=== PATIENT | female | born 1990 | race Caucasian/White ===

== ENCOUNTER 2021-06-15 15:21 | Emergency (ER) | payer OTHER ==
[~2021-06-15] VITALS: Ht 152 cm; Wt 55.0 kg
[2021-06-15 17:21] LABS: BACTERIA,URINE MODERATE /HPF; BILIRUBIN,URINE NEGATIVE (NEGATIVE); CLARITY,URINE CLEAR; COLOR,URINE YELLOW; GLUCOSE, URINE (UA) NEGATIVE (NEGATIVE); KETONES,URINE 1+ (NEGATIVE); LEUKOCYTE ESTERASE ,URINE NEGATIVE (NEGATIVE); NITRITE,URINE NEGATIVE (NEGATIVE); PROTEIN,URINE NEGATIVE (NEGATIVE); RBC,URINE 0-2 /HPF; SQUAMOUS EPITHELIAL CELL,UR 25-50 /HPF
--- NOTE | 2021-06-15 17:28 | ED Back Pain ---
General Chief Complaint: Back Problems Stated Complaint: ABD/BACK PAIN VOMITING Nursing Triage Note: PT REPORTS LOWER BACK PAIN THAT RADIATES INTO HER RIBS BILATERALLY. PT REPORTS SEVERAL MONTHS AGO HER KIDNEY FUNCTION WAS NOT GOOD IT SHOULD BE AND SHE HAS A FOLLOW UP IN JUNE. History of Present Illness Date Seen by Provider: Jun 15, 2021 Time Seen by Provider: 16:50 Initial Comments 30-year-old female with PMH of PTSD/possible arthritis undergoing work-up, is here with complaints of mid back pain which is radiating towards her flanks which began today. Patient states the pain was equal to labor pain. In the ER her pain has resolved completely and she just feels nauseous. Patient denies dysuria, fever, chills, abdominal pain, chest pain, shortness of breath, cough. Patient has a 20 pound baby which she carries a lot which may have been a trigger for the pain, however patient has not been drinking much water lately as she should. Allergies and Home Medications Allergies Coded Allergies: No Known Drug Allergies (Unverified , 06/15/21) Patient Home Medication List Home Medication List Reviewed: Yes Review of Systems Constitutional: no symptoms reported EENTM: no symptoms reported Respiratory: no symptoms reported Cardiovascular: no symptoms reported Gastrointestinal: nausea, vomiting, other (mid back pain resolved. No muscle spasm) Skin: no symptoms reported Psychiatric/Neurological: No Symptoms Reported Past Xjumwai-Dvpmlh-Uzzmtl Hx Patient Social History Tobacco Use?: No Use of E-Cig and/or Vaping dev: No Substance use?: No Alcohol Use?: No Pt feels they are or have been: No Immunizations Up To Date First/Initial COVID19 Vaccinat: 2020 Second COVID19 Vaccination Fernando: 2020 COVID19 Vaccine Cut Out Worker: JOSIAS Physical Exam Vital Signs Vital Signs - First Documented 06/15/21 15:34 Temp 36.5 Pulse 71 Resp 18 B/P (MAP) 122/71 (88) Pulse Ox 99 O2 Delivery Room Air Capillary Refill : Less Than 3 Seconds Height, Weight, BMI Height: '" Weight: lbs. oz. kg; 23.00 BMI Method: General Appearance: No Apparent Distress HEENT: PERRL/EOMI Neck: Full Range of Motion Cardiovascular: Regular Rate, Rhythm Respiratory: Chest Non Tender, Lungs Clear, Normal Breath Sounds Gastrointestinal: Normal Bowel Sounds, No Organomegaly, No Pulsatile Mass, Non Tender, Soft Back: Normal Inspection, No CVA Tenderness, No Vertebral Tenderness Neurologic/Psychiatric: Alert, Oriented x3, No Motor/Sensory Deficits Progress/Results/Core Measures Results/Orders Lab Results Laboratory Tests Test 06/15/21 15:34 06/15/21 17:24 Range/Units Urine Color YELLOW Urine Clarity CLEAR Urine pH 6.0 5-9 Urine Specific [place] >=1.030 1.016-1.022 Urine Protein NEGATIVE NEGATIVE Urine Glucose (UA) NEGATIVE NEGATIVE Urine Ketones 1+ H NEGATIVE Urine Nitrite NEGATIVE NEGATIVE Urine Bilirubin NEGATIVE NEGATIVE Urine Urobilinogen 0.2 < = 1.0 MG/DL Urine Leukocyte Esterase NEGATIVE NEGATIVE Urine RBC (Auto) TRACE-I H NEGATIVE Urine RBC 0-2 /HPF Urine WBC 2-5 /HPF Urine Squamous Epithelial Cells 25-50 H /HPF Urine Crystals NONE /LPF Urine Bacteria MODERATE H /HPF Urine Casts NONE /LPF Urine Mucus SMALL H /LPF Urine Culture Indicated NO Urine Test NEGATIVE NEGATIVE White Blood Count 9.9 4.3-11.0 10^3/uL Red Blood Count 4.41 3.80-5.11 10^6/uL Hemoglobin 12.9 11.5-16.0 g/dL Hematocrit 38 35-52 % Mean Corpuscular Volume 86 80-99 fL Mean Corpuscular Hemoglobin 29 25-34 pg Mean Corpuscular Hemoglobin Concent 34 32-36 g/dL Red Cell Distribution Width 12.8 10.0-14.5 % Platelet Count 204 130-400 10^3/uL Mean Platelet Volume 9.7 9.0-12.2 fL Immature Granulocyte % (Auto) 0 % Neutrophils (%) (Auto) 84 H 42-75 % Lymphocytes (%) (Auto) 7 L 12-44 % Monocytes (%) (Auto) 9 0-12 % Eosinophils (%) (Auto) 0 0-10 % Basophils (%) (Auto) 0 0-10 % Neutrophils # (Auto) 8.2 H 1.8-7.8 10^3/uL Lymphocytes # (Auto) 0.7 L 1.0-4.0 10^3/uL Monocytes # (Auto) 0.9 0.0-1.0 10^3/uL Eosinophils # (Auto) 0.0 0.0-0.3 10^3/uL Basophils # (Auto) 0.0 0.0-0.1 10^3/uL Immature Granulocyte # (Auto) 0.0 0.0-0.1 10^3/uL Neutrophils % (Manual) 89 % Lymphocytes % (Manual) 5 % Monocytes % (Manual) 5 % Band Neutrophils 1 % Sodium Level 141 135-145 MMOL/L Potassium Level 3.9 3.6-5.0 MMOL/L Chloride Level 104 98-107 MMOL/L Carbon Dioxide Level 25 21-32 MMOL/L Anion Gap 12 5-14 MMOL/L Blood Urea Nitrogen 15 7-18 MG/DL Creatinine 0.73 0.60-1.30 MG/DL Estimat Glomerular Filtration Rate 115 BUN/Creatinine Ratio 21 Glucose Level 94 70-105 MG/DL Calcium Level 9.8 8.5-10.1 MG/DL Corrected Calcium 8.5-10.1 MG/DL Total Bilirubin 0.5 0.1-1.0 MG/DL Aspartate Amino Transf (AST/SGOT) 287 H 5-34 U/L Alanine Aminotransferase (ALT/SGPT) 139 H 0-55 U/L Alkaline Phosphatase 99 40-136 U/L Total Protein 7.9 6.4-8.2 GM/DL Albumin 4.9 H 3.2-4.5 GM/DL Lipase 31 8-78 U/L My Orders Orders - ABRAN MERRILL MD Ct Abdomen/Pelvis Wo (06/15/21 17:17) Ed Iv/Invasive Line Start (06/15/21 17:17) Cbc With Automated Diff (06/15/21 17:17) Comprehensive Metabolic Panel (06/15/21 17:17) Hcg,Qualitative Urine (06/15/21 17:17) Lipase (06/15/21 17:17) Ua Culture If Indicated (06/15/21 17:17) Ondansetron Injection (Zofran Injectio (06/15/21 17:30) Ed Iv/Invasive Line Start (06/15/21 17:18) Ns Iv 1000 Ml (Sodium Chloride 0.9%) (06/15/21 17:30) Manual Differential (06/15/21 17:24) Medications Given in ED Current Medications Medications Dose Ordered Sig/Sandie Route Start Time Stop Time Status Last Admin Dose Admin Ondansetron HCl 4 mg ONCE ONCE IVP 06/15/21 17:30 06/15/21 17:31 DC 06/15/21 17:27 4 MG Vital Signs/I&O 06/15/21 15:34 Temp 36.5 Pulse 71 Resp 18 B/P (MAP) 122/71 (88) Pulse Ox 99 O2 Delivery Room Air Blood Pressure Mean: 88 Progress Progress Note : Progress Note 1. BACK/ FLANK PAIN: - CT ABD: unremarkable except for a 3.3 cm ovarian cyst - Labs unremarkable except that AST is 287 and ALT is 139. Both are elevated but pt denies alcogol intake for long time. She is being worked up for rheumatoid arthritis and autoimmune disorder due to an elevated CRP, in [place] where she is from. - UA unremarkable - NS IVF bolus and Zofran 4mg iv STAT. Pt feels better after this - Advised to f/u with her PCP in [place] . Pt agreed to plan. - There may also be a possibility she may have have had a kidney stone, and once she passed the stone, the pain resolved. Diagnostic Imaging Diagonstic Imaging: CT Plain Films/CT/US/NM/MRI: abdomen Comments [facility] [place], [place] NAME: IGNACIA FRANK [facility] REC#: [id number] PT STATUS: REG ER : 1990 PHYSICIAN: ABRAN MERRILL MD ADMIT DATE: 06/15/21/ER FS Signed Date of Exam:06/15/21 CT ABDOMEN/PELVIS WO PROCEDURE: CT abdomen and pelvis without contrast. TECHNIQUE: Multiple contiguous axial images were obtained through the abdomen and pelvis without the use of intravenous contrast. Auto Exposure Controls were utilized during the CT exam to meet ALARA standards for radiation dose reduction. DATE: June 15, 2021. COMPARISON: None. INDICATION: 30-year-old female, nausea and vomiting. Bilateral flank pain. FINDINGS: There are limitations for evaluation of the abdominal organs, neoplastic processes, abscess, and limited evaluation of the vasculature relating to the lack of intravenous contrast. The visualized portions of the lung bases are clear. The heart is not enlarged. There is no identified pericardial effusion. The liver is unremarkable in size and contour. The gallbladder is unremarkable. There is no identified intrahepatic or extrahepatic bile duct dilation. The main pancreatic duct is not abnormally dilated. Limited noncontrast evaluation of the pancreatic parenchyma is unremarkable. The spleen is not enlarged. The adrenal glands are unremarkable. Unremarkable appearance of the renal parenchyma. The urinary collecting systems are not distended. There is no identified renal or ureteral stone. The urinary bladder is unremarkable. There is a cystic lesion in the left adnexa on axial image 165 measuring up to 3.3 cm in size which may reflect an ovarian cyst although it is not well characterized on CT. There is a very small amount of free pelvic fluid which may be physiologic. The intestinal tract is not distended. There is no evidence of acute appendicitis. There is a very small fat-containing paraumbilical hernia. There is no free intraperitoneal air. There is no identified drainable fluid collection. There appears to be a circumaortic left renal vein. There is no identified abnormally enlarged lymph node in the abdomen or pelvis which specifically meets CT size criteria for adenopathy. There is transitional lumbosacral anatomy. L5 is labeled as having an enlarged right lateral mass with pseudoarticulation with S1. If spinal intervention is to be performed in the future, recommend careful correlation with levels. There is no identified acute bony abnormality. IMPRESSION: CT abdomen and pelvis: 1. Cystic left adnexal lesion measuring 3.3 cm in size which may reflect an ovarian cyst although is not well characterized on CT. 2. Very small amount of free pelvic fluid which is most likely physiologic. 3. No identified acute abnormality in the abdomen or pelvis. Dictated by: Dictated on workstation # [id number] Dict: 06/15/211736 Trans: 06/15/211745 [id number] Interpreted by: EMELINA BERNAL MD Electronically signed by: EMELINA BERNAL MD 06/15/211745 Departure Impression Primary Impression: Flank pain Additional Impression: Mid back pain Disposition: 01 HOME, SELF-CARE Condition: Improved Departure-Patient Inst. Referrals: NO,LOCAL PHYSICIAN (PCP/Family) Primary Care Physician Patient Instructions: Flank Pain ED Add. Discharge Instructions: 1. BACK/ FLANK PAIN: - CT ABD: unremarkable except for a 3.3 cm ovarian cyst - Labs unremarkable except that AST is 287 and ALT is 139. Both are elevated but pt denies alcogol intake for long time. She is being worked up for rheumatoid arthritis and autoimmune disorder due to an elevated CRP, in [place] where she is from. - UA unremarkable - NS IVF bolus and Zofran 4mg iv STAT. Pt feels better after this - Advised to f/u with her PCP in [place] . Pt agreed to plan. - There may also be a possibility she may have have had a kidney stone, and once she passed the stone, the pain resolved. - If pain worsens return to closest ER All discharge instructions reviewed with patient and/or family. Voiced understanding. ABRAN MERRILL MD Jun 15, 2021 17:28
[2021-06-15] MEDS ORDERED: NS IV 1000 ML 1,000 ML IV SCH (17:30)
[2021-06-15] MEDS ORDERED: ONDANSETRON 4 MG/2 ML (SDV) Z0FRAN IVP ONE (17:30)
[2021-06-15 17:31] LABS: BASOPHILS % (AUTO) 0 % (0-10); EOSINOPHILS % (AUTO) 0 % (0-10); HEMATOCRIT 38 % (35-52); HEMOGLOBIN 12.9 g/dL (11.5-16.0); LYMPHOCYTES # (AUTO) 0.7 10^3/uL (1.0-4.0); LYMPHOCYTES % (AUTO) 7 % (12-44); MEAN CORPUSCULAR HEMOGLOBIN 29 pg (25-34); MEAN CORPUSCULAR HGB CONC 34 g/dL (32-36); MEAN CORPUSCULAR VOLUME 86 fL (80-99); MEAN PLATELET VOLUME 9.7 fL (9.0-12.2); MONOCYTES # (AUTO) 0.9 10^3/uL (0.0-1.0); MONOCYTES % (AUTO) 9 % (0-12); NEUTROPHILS # (AUTO) 8.2 10^3/uL (1.8-7.8); NEUTROPHILS % (AUTO) 84 % (42-75); PLATELET COUNT 204 10^3/uL (130-400); WHITE BLOOD COUNT 9.9 10^3/uL (4.3-11.0)
--- NOTE | 2021-06-15 17:44 | Diagnostic Imaging Report ---
PROCEDURE: CT abdomen and pelvis without contrast. TECHNIQUE: Multiple contiguous axial images were obtained through the abdomen and pelvis without the use of intravenous contrast. Auto Exposure Controls were utilized during the CT exam to meet ALARA standards for radiation dose reduction. DATE: June 15, 2021. COMPARISON: None. INDICATION: 30-year-old female, nausea and vomiting. Bilateral flank pain. FINDINGS: There are limitations for evaluation of the abdominal organs, neoplastic processes, abscess, and limited evaluation of the vasculature relating to the lack of intravenous contrast. The visualized portions of the lung bases are clear. The heart is not enlarged. There is no identified pericardial effusion. The liver is unremarkable in size and contour. The gallbladder is unremarkable. There is no identified intrahepatic or extrahepatic bile duct dilation. The main pancreatic duct is not abnormally dilated. Limited noncontrast evaluation of the pancreatic parenchyma is unremarkable. The spleen is not enlarged. The adrenal glands are unremarkable. Unremarkable appearance of the renal parenchyma. The urinary collecting systems are not distended. There is no identified renal or ureteral stone. The urinary bladder is unremarkable. There is a cystic lesion in the left adnexa on axial image 165 measuring up to 3.3 cm in size which may reflect an ovarian cyst although it is not well characterized on CT. There is a very small amount of free pelvic fluid which may be physiologic. The intestinal tract is not distended. There is no evidence of acute appendicitis. There is a very small fat-containing paraumbilical hernia. There is no free intraperitoneal air. There is no identified drainable fluid collection. There appears to be a circumaortic left renal vein. There is no identified abnormally enlarged lymph node in the abdomen or pelvis which specifically meets CT size criteria for adenopathy. There is transitional lumbosacral anatomy. L5 is labeled as having an enlarged right lateral mass with pseudoarticulation with S1. If spinal intervention is to be performed in the future, recommend careful correlation with levels. There is no identified acute bony abnormality. IMPRESSION: CT abdomen and pelvis: 1. Cystic left adnexal lesion measuring 3.3 cm in size which may reflect an ovarian cyst although is not well characterized on CT. 2. Very small amount of free pelvic fluid which is most likely physiologic. 3. No identified acute abnormality in the abdomen or pelvis. Dictated by: Dictated on workstation # [id number]
[2021-06-15 17:50] LABS: ALANINE AMINOTRANSFERASE 139 U/L (0-55); ALKALINE PHOSPHATASE 99 U/L (40-136); BILIRUBIN,TOTAL 0.5 MG/DL (0.1-1.0); BUN/CREATININE RATIO 21; CALCIUM 9.8 MG/DL (8.5-10.1); CARBON DIOXIDE 25 MMOL/L (21-32); CHLORIDE 104 MMOL/L (98-107); CREATININE SERUM 0.73 MG/DL (0.60-1.30); GFR ESTIMATED 115; GLUCOSE 94 MG/DL (70-105); POTASSIUM 3.9 MMOL/L (3.6-5.0); SODIUM 141 MMOL/L (135-145); TOTAL PROTEIN 7.9 GM/DL (6.4-8.2)
[2021-06-15 17:51] LABS: ALBUMIN 4.9 GM/DL (3.2-4.5); LIPASE 31 U/L (8-78)
[2021-06-15 17:54] LABS: BAND NEUTROPHILS 1 %; LYMPHOCYTES % (MANUAL) 5 %; MONOCYTES % (MANUAL) 5 %; NEUTROPHILS % (MANUAL) 89 %
[2021-06-15 18:10] VITALS: BP 122/71
== END 2021-06-15 18:19 | disposition home or self-care (01) ==
LOC: ER FS 15:24
DX: M54.50 Low back pain, unspecified (principal); R10.9 Unspecified abdominal pain; M06.9 Rheumatoid arthritis, unspecified; D89.9 Disorder involving the immune mechanism, unspecified; R74.01 Elevation of levels of liver transaminase levels; R79.82 Elevated C-reactive protein (CRP); Z32.02 Encounter for pregnancy test, result negative
CPT/HCPCS: 36415; 74176; 80053; 81000; 83690; 84703; 85007; 85027; 99284; G0480; 80320